=== PATIENT | female | born 1955 | race Caucasian/White ===

== ENCOUNTER 2021-08-30 12:54 | Outpatient (CLI) | payer BC | END 2021-08-30 12:55 | disposition home or self-care (01) | LOC: CSHCT 12:54 | PROVIDERS: ATTEND Urology | DX: N20.0 Calculus of kidney (principal); N28.9 Disorder of kidney and ureter, unspecified; Z87.440 Personal history of urinary (tract) infections | CPT/HCPCS: 74178; 82565 ==